=== PATIENT | female | born 1945 | race Caucasian/White ===

== ENCOUNTER → 2019-05-01 | Outpatient (CLI) | payer MEDICARE ==
--- NOTE | 2019-05-01 14:20 | Diagnostic Imaging Report ---
INDICATION: Shortness of breath and cough. TIME OF EXAM 11:42 AM Comparison is made with prior chest from 01/13/2009. Right hemidiaphragm is elevated. The heart size is normal. The pulmonary vascularity is normal. No infiltrates are seen. No effusion or pneumothorax is detected. IMPRESSION: Right hemidiaphragmatic elevation. The study is otherwise unremarkable. Dictated by: Dictated on workstation # [id number]
== END ==
LOC: RAD 11:26
PROVIDERS: ATTEND Internal Medicine
DX: R06.02 Shortness of breath (principal); R05 Cough; R06.2 Wheezing; Z85.3 Personal history of malignant neoplasm of breast
CPT/HCPCS: 71046

== ENCOUNTER → 2019-05-15 | Outpatient (CLI) | payer MEDICARE ==
[~2019-05-15] MED LIST: CATHETER FLUSH 10 ML SYR IV PRN; HOLD METFORMIN - RECEIVED CONTRAST 20 ML VIAL IV SCH; IOHEXOL 350 MG/ML 100 ML (OMNIPAQUE 350) VIAL IV ONE; NS 100 ML (IVPB) BAG IV ONE
[2019-05-15 14:39] LABS: BUN/CREATININE RATIO 16; CREATININE SERUM 0.81 MG/DL (0.60-1.30); GFR ESTIMATED > 60
--- NOTE | 2019-05-15 16:28 | Diagnostic Imaging Report ---
INDICATION: Cough and history of breast cancer and right mastectomy, right hemidiaphragmatic elevation CT chest obtained with IV contrast. TECHNIQUE: Multiple contiguous axial images were obtained through the chest after administration of intravenous contrast. Auto Exposure Controls were utilized during the CT exam to meet ALARA standards for radiation dose reduction. There is no prior study for comparison. The patient has had previous right mastectomy. There is no overt chest wall lesion or axillary adenopathy. There is no pleural or pericardial effusion. There are no enlarged mediastinal or hilar lymph nodes. There is prominent elevation of the right hemidiaphragm. Visualized portions of the upper abdomen show no overt mass lesion. Lung parenchymal windows demonstrate no discrete pulmonary parenchymal lesions. There are multiple calcified granulomata over the right lung base. There is dependent atelectatic change in the right lung base. IMPRESSION: Dependent atelectatic changes in right lung base with calcified granulomata. No consolidation or discrete pulmonary parenchymal mass. There is no adenopathy or overt cause for the patient's markedly elevated right hemidiaphragm. There is no pleural fluid. Patient has had previous right mastectomy. Dictated by: Dictated on workstation # [id number]
== END ==
LOC: RAD 13:53
PROVIDERS: ATTEND Internal Medicine
DX: J98.11 Atelectasis (principal); L92.8 Other granulomatous disorders of the skin and subcutaneous tissue; J98.6 Disorders of diaphragm; Z85.3 Personal history of malignant neoplasm of breast
CPT/HCPCS: 36415; 71260; 82565; 84520

== ENCOUNTER 2023-03-16 08:37 | Day surgery (SDC) | payer MEDICARE ==
--- NOTE | 2023-03-09 08:30 | HISTORY AND PHYSICAL ---
DATE OF SERVICE: 03/16/2023 COLONOSCOPY HISTORY AND PHYSICAL HISTORY OF PRESENT ILLNESS: The patient is a 77-year-old white female being scheduled for screening colonoscopy. This has been requested by her oncologist who she has seen for breast cancer. She was originally diagnosed with breast cancer, stage II in 1989 and underwent right mastectomy. Three nodes in the axilla were positive. She has not had any recurrence to date. She reports that she has been depressed since the loss of her dog 2 months ago. She gets tearful when talking about the animal. She asked about whether or not there is anything other than Prozac to take, which she had been doing well on prior. She denies abdominal pain, bright red blood per rectum or melena. It has been over 10 years since her last colonoscopy that did not reveal any evidence for neoplasia. PHYSICAL EXAMINATION: GENERAL: Reveals a white female, appeared to be in no acute distress, except intermittently tearful. VITAL SIGNS: Weight was down 8.8 pounds from 6 months ago. Blood pressure 106/60. HEENT: Unremarkable. No pallor. No scleral icterus. CHEST: Clear. CARDIOVASCULAR: Reveals regular rate and rhythm without murmur, S3, or S4. ABDOMEN: Soft, supple without mass, organomegaly, or tenderness. EXTREMITIES: No cyanosis, clubbing or edema. ASSESSMENT AND PLAN: 1. The patient is being set up for screening colonoscopy likely her last if it is unremarkable. Prep instructions were given and questions were answered. 2. Grief reaction. Discuss temporarily, we could go up to 60 mg of Prozac but what she was experiencing was normal considering the degree of affection she had for her dog. We did call out 20 mg of fluoxetine to take in addition to her 40 mg tablet just for the next 2 months and then back to 40 mg if there is an exacerbation. We can go back to 60. If she thinks that her symptoms are worse, she is to come in for early evaluation. 3. Not mentioned above, she is having some intermittent left sided cervicalgia, for which there were no abnormalities on examination. She is not having any radicular symptoms. It is mild. She is reassured. There is no evidence for lymphadenopathy. We will see her back in 6 months. Job ID: [id number] DocumentID: [id number] Dictated Date: 03/07/2023 16:54:51 Tile Shader Date: 03/07/2023 17:21:00 Dictated By: JARROD STEEL MD MTDD
[~2023-03-16 08:37] MED LIST changes: -CATHETER FLUSH 10 ML SYR IV PRN; +FLUO40CA12 PO; -HOLD METFORMIN - RECEIVED CONTRAST 20 ML VIAL IV SCH; -IOHEXOL 350 MG/ML 100 ML (OMNIPAQUE 350) VIAL IV ONE; +LACTATED RINGERS 1,000 ML 1,000 ML IV STA; +LEVO75TA6 PO; -NS 100 ML (IVPB) BAG IV ONE
--- NOTE | 2023-03-16 08:49 | Pre-Op Note & Conscious Sedat ---
Pre-Operative Progress Note Date H&P Reviewed: Mar 16, 2023 Time H&P Reviewed: 08:49 History & Physical: H&P Reviewed, Patient Examed, No changes noted Pre-Op Diagnosis: screening Moderate Sedation PreProcedure ASA Score 2 Airway Lungs Heart ASA score ASA 1: a normal healthy patient ASA 2: a patient with a mild systemic disease (mid diabetes, controlled hypertension, obesity ASA 3: a patient with a severe systemic disease that limits activity (angina, COPD, prior Myocardial infarction) ASA 4: a patient with an incapacitating disease that is a constant threat to life (CHF, renal failure) ASA 5: a moribund patient not expected to survive 24 hrs. (ruptured aneurysm) ASA 6: a declared brain- patient whose organs are being harvested. For emergent operations, add the letter E after the classification Mallampati Classification Grade 2 Sedation Plan Analgesia, Amnesia, Plan communicated to team members, Discussed options with patient/fam, Discussed risks with patient/fam The patient is an appropriate candidate to undergo the planned procedure, sedation, and anesthesia. The patient immediately re-assessed prior to indication. JARROD STEEL MD Mar 16, 2023 08:49
[2023-03-16 09:04] VITALS: BP 117/72
--- NOTE | 2023-03-16 09:54 | Progress Note-Post Operative ---
Post-Procedure Note Physician (s)/Crusher (s) Physician JARROD STEEL MD Pre-Procedure Diagnosis Pre-Procedure Diagnosis: screening Post-Procedure Diagnosis Post-operative diagnosis: Prior to undergoing colonoscopy digital rectal evaluation was performed. Anal sphincter tone was normal and the perianal reflexes intact. No abnormalities noted on digital inspection of the anal canal or distal rectal vault. The colonoscope was then inserted into the rectum and under direct visualization advanced to the cecum. The cecum was identified by identification of the ileocecal valve and cecal strap. Photographic documentation was obtained. Quality prep was fair. Findings: There are no evidence for internal or external hemorrhoids in the rectum sigmoid colon descending colon splenic flexure and transverse colon were unremarkable. A sessile 4 mm polyp was noted at the hepatic flexure it was biopsied and ablated. A similar polyp was noted in the descending colon which was also biopsied and ablated with no blood loss. The remainder the ascending colon and cecum were unremarkable. Assessment: #1 2 sessile 4 mm polyps were removed via hot forceps from the hepatic flexure mid ascending colon with an otherwise normal colonoscopy to the cecum. As long as there are no surprises on histopathology report considering age would not advocate future surveillance colonoscopy. JARROD STEEL MD Mar 16, 2023 09:54
[2023-03-16 09:55] VITALS: BP 101/56
[2023-03-16 10:00] VITALS: BP 101/56
[2023-03-16 10:30] VITALS: BP 112/69
[2023-03-16 10:45] VITALS: BP 112/69
--- NOTE | 2023-03-16 11:42 | Anesthesia-General Post-Op ---
MAC Patient Condition Mental Status/LOC: Same as Preop Cardiovascular: Satisfactory Nausea/Vomiting: Absent Respiratory: Satisfactory Pain: Controlled Complications: Absent Post Op Complications Complications None Follow Up Care/Instructions Patient Instructions None needed. Anesthesiology Discharge Order Discharge Order Patient was doing well this morning after the procedure with no complaints, stable vital signs, no apparent adverse anesthesia problems. No complications reported per nursing. GONZALO SEGOVIA DO Mar 16, 2023 11:42
== END 2023-03-16 10:45 | disposition home or self-care (01) ==
LOC: ENDO 08:37
PROVIDERS: ATTEND Internal Medicine
DX: Z12.11 Encounter for screening for malignant neoplasm of colon (principal); D12.2 Benign neoplasm of ascending colon; D12.3 Benign neoplasm of transverse colon; Z85.3 Personal history of malignant neoplasm of breast; M54.2 Cervicalgia; F43.20 Adjustment disorder, unspecified